=== PATIENT | male | born 1955 | race Caucasian/White ===

== ENCOUNTER 2024-03-08 23:15 | Emergency (ER) | payer MEDICARE, SELFPAY ==
[2024-03-08 23:16] VITALS: BP 152/87
[2024-03-09] VITALS (8 sets, daily range): BP systolic 94–120; BP diastolic 44–84; BMI 36.6
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
[2024-03-09 00:29] LABS: % Basophils 0.4 % (0-2); % Eosinophils 1.9 % (0-6); % Immature Granulocytes 0.4 % (0-0.5); % Lymphocytes 22.5 % (20.5-51.1); % Monocytes 6.7 % (1.7-9.3); % Neutrophils 68.1 % (42.2-75.2); Absolute Eosinophils 0.1 10^3/uL (0-0.7); Absolute Lymphocytes 1.7 10^3/uL (1.2-3.4); Absolute Monocytes 0.5 10^3/uL (0.1-0.6); Absolute Neutrophils 5.2 10^3/uL (1.4-6.5); Hemoglobin 12.9 g/dL (13.0-18.0); Mean Corp Hgb Conc. 34.9 g/dL (33.0-37.0); Mean Corpuscular Hgb 31.9 pg (27.0-31.0); Mean Corpuscular Volume 91.4 fL (80.0-94.0); Mean Platelet Volume 9.5 fL (7.4-10.4); Nucleated Red Blood Cells % 0 % (-); Platelet Count 281 10^3/uL (130-400); Red Blood Cell Count 4.05 10^6/uL (4.70-6.10); Red Cell Dist. Width 12.7 % (11.5-14.5); White Blood Cell Count 7.6 10^3/uL (4.8-10.8)
--- NOTE | 2024-03-09 00:39 | EDRN ---
Attempted to interrogate patients pacemaker with the [employer]tr[employer] it kept saying no device found, attempted using another interrogator which also didn't work, myself and two other nurses attempted as did Dr. Hampton, all with same results,
Memo called cardiology about what happened to have a plan.
[2024-03-09 00:45] LABS: APTT 38.1 Sec (23.4-35.0)
[2024-03-09 00:59] LABS: Troponin I 0.045 ng/ml
[2024-03-09 01:21] LABS: ALT (SGPT) 37 U/L (0-50); AST (SGOT) 33 U/L (17-59); Albumin 3.9 g/dl (3.5-5.0); Alkaline Phosphatase 65 U/L (38-126); Blood Urea Nitrogen 19 mg/dl (9-20); Calcium 8.5 mg/dl (8.4-10.2); Carbon Dioxide 27 mmol/L (22-30); Chloride 102 mmol/L (98-107); Estimated Creatinine Clearance 92 ml/min; Glucose 142 mg/dl (70-99); Potassium 3.4 mmol/L (3.5-5.1); Sodium 139 mmol/L (135-145); Total Bilirubin 0.5 mg/dl (0.2-1.3); Total Protein 6.6 g/dl (6.3-8.2); eGFR > 60.00
[2024-03-09] MEDS: NSS 1000 IV (01:27)
--- NOTE | 2024-03-09 05:30 | EDRN ---
Patient ambulatory to the restroom and back in bed resting comfortably
[2024-03-09 06:17] LABS: Troponin I 0.045 ng/ml
== END 2024-03-09 07:00 | disposition home or self-care (01) ==
LOC: EMR 23:15
PROVIDERS: EMERGENCY PHYSICIAN Student in an Organized Health Care Education/Training Program
DX: Z45.02 Encounter for adjustment and management of automatic implantable cardiac defibrillator (principal); E78.00 Pure hypercholesterolemia, unspecified; I10 Essential (primary) hypertension; I25.10 Atherosclerotic heart disease of native coronary artery without angina pectoris; K21.9 Gastro-esophageal reflux disease without esophagitis; I25.2 Old myocardial infarction
CPT/HCPCS: 96360; 96361; 99284; 80053; 84484; 85025; 85730

== ENCOUNTER → 2024-11-14 11:05 | Outpatient (REF) | payer OTHER, SELFPAY | LOC: HWRCS 11:05 | PROVIDERS: ATTENDING PHYSICIAN Internal Medicine Cardiovascular Disease; FAMILY PHYSICIAN Family Medicine | DX: I25.5 Ischemic cardiomyopathy (principal) | CPT/HCPCS: 78452; 93017; A9500; J2785 ==

== ENCOUNTER 2024-11-19 05:59 | Day surgery (SDC) | payer OTHER, SELFPAY ==
[2024-11-19] VITALS (13 sets, daily range): BP systolic 95–130; BP diastolic 54–75; BMI 34.7
[2024-11-19] MEDS: NSS 311 ML IV (07:26)
[2024-11-19] MEDS: LOW STRENGTH ASPIRIN 324 MG PO (07:29)
--- NOTE | 2024-11-19 09:52 | ITS.CL.CATH ---
[facility] - Catheterization
Cardiac Catheterization
Procedure Report:
RIGHT AND LEFT HEART CATHETERIZATION
Date of Procedure: November 19, 2024
Primary Care Physician: Dr. Raul Mosquera
Primary Litigation Assistant: Dr. Eder Caal
Procedures performed:
1: Coronary angiography
2: Left ventriculography
3: Saphenous vein and left internal mammary artery bypass graft angiography
4: Right heart catheterization
INDICATION: The patient is a 68-year-old man with a past medical history significant for coronary artery disease status post CABG in 2018, most recently status post left main into LAD stenting in February 2022, severe ischemic cardiomyopathy,
hypertension and hyperlipidemia. The patient is also status post BiV ICD placement and has had ICD shock on for real VT/VF and was started on amiodarone - no further VT.
ACCESS: The patient was prepped and draped in usual sterile fashion. A 6 Macedonian sheath was placed in the right common femoral artery using the Seldinger over the wire technique. A 6 [place] sheath was then placed in the right common femoral vein
using the same technique. Ultrasound guidance with a micropuncture kit was used. Attempts to place a left radial artery sheath were not readily successful. The artery was open but it appeared to be deep and I was unable to cannulate after
multiple attempts. It may also be that this was scarred a bit after his left radial cath in 2022.
HEMODYNAMIC FINDINGS (mmHg):
RA(a,v,m): 10, 10, 6
RV(s/d,EDP): 34/6, 12
PA(s/d/m): 33/18 16,
PCWP(a,v,m): 16, 15, 22
LV(s/d,EDP): 126/13, 17
Ao(s/d,m): 126/74, 96
Oxygen Saturations (mg/dl):
PA: 69% on room air
LV: 95% on room air
Cardiac Output/Index (l/min / l/min/m2):
Estimated Berta Method: 5.9 / 2.7
VALVE HEMODYNAMICS:
No significant aortic or mitral valve stenosis.
ANGIOGRAPHIC FINDINGS:
Single-plane Left Ventriculography in ANDRADE Projection: Severe inferobasal and diaphragmatic hypokinesis to akinesis. Preserved distal inferior wall motion. Moderate to severe anterolateral hypokinesis. Overall severe LV systolic dysfunction with a
visually estimated ejection fraction of under 20%. No significant mitral regurgitation.
Coronary Angiography:
Dominance: Right
Left Main: Widely patent previously placed distal left main stent extending into the LAD. All vessels are heavily calcified.
Left Anterior Descending: The left anterior descending artery is a heavily calcified vessel that has previous overlapping stenting extending from the left main into the proximal LAD. The stents are widely patent with minimal in-stent restenosis.
The LAD gives rise to 1 major diagonal branch which has an ostial 50-80% stenosis followed by aneurysmal dilation and appears unchanged from prior angiography. The true ostial narrowing is difficult to assess due to vascular overlap however it
appears unchanged from prior angiography in 2022. There is brisk antegrade flow into the diagonal branch. The remainder of the LAD is widely patent with mild luminal irregularities. There is competitive flow noted from the widely patent vein
graft.
Left Circumflex: Flush ostial occlusion.
Right Coronary: The right coronary artery is heavily calcified throughout the AV groove. The proximal vessel is marked luminal irregularity with ectasia and a long smooth heavily calcified 30% mid stenosis. The vessel is tortuous and heavily
calcified at the acute margin with what appears to be a 70 to 80% stenosis at the acute bend. Of note this appears unchanged from his prior angiography including the preop angiogram. This is difficult to assess due to the tortuosity and
calcification. The distal vessel also is calcified with ectatic dilation but no focal obstructive disease with a patent posterior descending artery. The right coronary artery appears angiographically unchanged from prior angiography in 2022.
MENDEZ to LAD: Widely patent. Of note there is now brisk competitive flow in the distal LAD which is new compared to prior angiography. Clearly the left main and LAD intervention has opened up good antegrade flow in the [place] LAD and thus limited
the need for MENDEZ to LAD flow.
SVG to OM: Widely patent
SVG to RCA: Flush occlusion at the aorta.
Other angiography:
1: Multiple injections were taken through the micropuncture introducer in the right common femoral artery. This revealed the stick to be low in the proximal superficial femoral artery. The anatomy of the common femoral bifurcation is somewhat
unusual with 2 medium caliber branches arising from relatively high at the inferior pole of the femoral head which is a replaced prosthetic. Rather than stick again higher and risk getting into a takeoff of 1 of these vessels, I elected to proceed
with the case and placed a 6 Macedonian sheath high in the proximal SFA.
Fluoroscopy Time (min): 9.5
Radiation Dose (mGy): 890
DAP (Gy.cm2): 77
Closure device: None. Manual pressure with a closure patch was used without acute complication.
Complications: None.
ASSESSMENT:
1: Widely patent previously placed left main and LAD stent with now good antegrade flow in the LAD. Unchanged branch vessel disease in the diagonal with normal flow. Patent MENDEZ to LAD and SVG to OM. Unchanged RCA [place] coronary anatomy.
2: Well compensated left ventricular filling pressures with only very mildly elevated pulmonary pressures.
3: Severe LV systolic dysfunction with no significant mitral regurgitation.
CONCLUSIONS and RECOMMENDATIONS:
1: Continue medical therapy for coronary artery disease, severe LV systolic dysfunction, and antiarrhythmic drug therapy given history of VT/VF. I see no options for further revascularization.
2: Clinical follow-up as scheduled.
Kim Rajan M.D.
Copy to: Dr. Raul Mosquera
== END 2024-11-19 12:10 | disposition home or self-care (01) ==
LOC: CATH 05:59
PROVIDERS: ATTENDING PHYSICIAN Internal Medicine Interventional Cardiology; FAMILY PHYSICIAN Family Medicine; OTHER PHYSICIAN Internal Medicine Cardiovascular Disease
DX: I25.10 Atherosclerotic heart disease of native coronary artery without angina pectoris (principal); Z95.5 Presence of coronary angioplasty implant and graft; Z95.1 Presence of aortocoronary bypass graft; I25.5 Ischemic cardiomyopathy; E78.5 Hyperlipidemia, unspecified; I10 Essential (primary) hypertension; Z95.810 Presence of automatic (implantable) cardiac defibrillator
CPT/HCPCS: 93461; C1769; C1894; Q9967